=== PATIENT | male | born 1960 | race Caucasian/White ===

== ENCOUNTER 2020-11-23 15:59 | Emergency (ER) | payer BC ==
[2020-11-23 16:10] VITALS: BP 113/74; PULSE 80; TEMP 98.4; BMI 25.6
== END 2020-11-23 16:23 | disposition home or self-care (01) ==
LOC: FER 15:59
DX: I86.1 Scrotal varices (principal)
CPT/HCPCS: 99283-25

== ENCOUNTER 2022-10-02 14:19 | Observation (INO) | payer BC ==
[2022-10-02] MEDS ORDERED: SODIUM CHLORIDE 0.9% 500 ML INFUS.BAG IV ONE ×2 (14:45→14:47)
[2022-10-02] MEDS ORDERED: dilTIAZem HCL 50 MG/10 ML - 10 ML VIAL IVPUSH ONE (14:50)
[2022-10-02] MEDS ORDERED: dilTIAZem HCL 125 MG/25 ML - 25 ML VIAL ONE (14:51)
[2022-10-02 15:10] LABS: INR 1.09 (0.83-1.09); PROTHROMBIN TIME (PATIENT) 12.6 SEC (9.7-13.0)
[2022-10-02 15:12] LABS: HEMATOCRIT 45.6 % (35.4-49); HEMOGLOBIN 15.6 G/dL (11.7-16.9); MCH 33.5 pg (25.7-33.7); MCHC 34.3 g/dl (32.0-35.9); MEAN CELL VOLUME 97.7 fl (80-96); MEAN PLT VOLUME 11.2 fl (7.5-11.1); PLATELET COUNT 161.3 10^3/uL (134-434); RBC 4.67 10^6/uL (4.00-5.60); RDW 14.4 % (11.9-15.9); WHITE BLOOD COUNT 13.6 10^3/uL (4.0-10.8)
[2022-10-02 15:13] LABS: ACTIVATED PTT 29.7 SECONDS (25.2-36.5)
[2022-10-02 15:24] LABS: ALBUMIN 4.8 g/dl (3.4-5.0); BILIRUBIN,TOTAL 1.1 mg/dl (0.2-1); BLOOD UREA NITROGEN 20.3 mg/dl (7-18); CALCIUM 9.9 mg/dl (8.5-10.1); CREATININE 1.1 mg/dl (0.6-1.3); MAGNESIUM 1.9 mg/dL (1.8-2.4); POTASSIUM 3.9 mmol/L (3.5-5.1); SGPT/ALT 14.5 U/L (7-52); TOT PROT 7.2 g/dl (6.4-8.2)
[2022-10-02 17:05] LABS: N-TERMINAL BNP 90.1 pg/ml (5-125)
[2022-10-02 17:31] LABS: PLATELET ESTIMATE ADEQUATE
[2022-10-02 23:00] VITALS: BMI 24.8
[2022-10-02] MEDS ORDERED: GABAPENTIN 300 MG CAPSULE PO SCH (23:46)
[2022-10-03] MEDS ORDERED: SODIUM CHLORIDE 1,000 ML IV SCH (03:15)
[2022-10-03] MEDS: AMOXICILLIN 500 MG CAPSULE (FP) PO SCH ×2 (06:50→14:53)
[2022-10-03 09:31] VITALS: RESP 18
[2022-10-03] MEDS ORDERED: CYANOCOBALAMIN (VITAMIN B-12) 100 MCG TABLET PO SCH (10:00)
[2022-10-03] MEDS ORDERED: CHOLECALCIFEROL (VIT D3) 400 UNIT (10 MCG) TABLET PO SCH (10:00)
[2022-10-03 11:02] LABS: CALCIUM 8.5 mg/dL (8.5-10.1)
[2022-10-03 11:03] LABS: BLOOD UREA NITROGEN 22.6 mg/dL (7-18)
[2022-10-03 11:07] LABS: BASO % 0.3 % (0-2.0); BILIRUBIN,TOTAL 1.2 mg/dL (0.2-1); EOS % 1.8 % (0-4.5); HEMATOCRIT 36.5 % (35.4-49); HEMOGLOBIN 12.3 GM/dL (11.7-16.9); LYMPH % 14.7 % (8-40); MCH 31.4 pg (25.7-33.7); MCHC 33.6 g/dl (32.0-35.9); MEAN CELL VOLUME 93.4 fl (80-96); MEAN PLT VOLUME 11.3 fl (7.5-11.1); MONO % 10.2 % (3.8-10.2); PLATELET COUNT 140 10^3/uL (134-434); RBC 3.91 M/mm3 (4.00-5.60); RDW 14.3 % (11.9-15.9); TOT PROT 5.5 g/dl (6.4-8.2); WHITE BLOOD COUNT 4.3 K/mm3 (4.0-10.0)
[2022-10-03 11:21] LABS: ALBUMIN 3.3 g/dl (3.4-5.0)
[2022-10-03 14:34] VITALS: BP 100/61; PULSE 55; TEMP 98.7
[2022-10-03] MEDS ORDERED: RIVAROXABAN 20 MG TABLET PO SCH (18:00)
== END 2022-10-03 15:20 | disposition home or self-care (01) ==
LOC: FER 14:19 → FM/S 20:17
PROVIDERS: ADMIT Internal Medicine; ATTEND Internal Medicine
PROC: 3E033GC Introduction of Other Therapeutic Substance into Peripheral Vein, Percutaneous Approach (ICD-10-PCS; principal; 2022-10-02)
DX: N40.0 Benign prostatic hyperplasia without lower urinary tract symptoms (principal); G47.30 Sleep apnea, unspecified; I48.91 Unspecified atrial fibrillation; Z86.73 Personal history of transient ischemic attack (TIA), and cerebral infarction without residual deficits; K08.89 Other specified disorders of teeth and supporting structures; G25.81 Restless legs syndrome
CPT/HCPCS: 0241U-QW; 36415; 70450-TC; 71045-TC-FY; 80053; 80061; 81003; 82550; 82962; 83036; 83735; 83880; 84443; 84484; 85025; 85610; 85730; 86850; 86900; 86901; 93005; 93010; 99291; G0378